=== PATIENT | female | born 1985 | race Caucasian/White ===

== ENCOUNTER 2017-02-19 21:45 | Inpatient (IN) | payer OTHER ==
[~2017-02-19 21:45] MED LIST: BUTORPHANOL TARTRATE 1 MG/ML VIAL IVPB ONE; PROMETHAZINE HCL 25 MG/1 ML VIAL IVPB ONE
[2017-02-19] MEDS ORDERED: AMPICILLIN - 100 ML IVPB ONE (23:30)
[2017-02-19 23:40] LABS: BASOPHIL 0.4 % (0-2.0); EOSINOPHIL 1.4 % (0-4.5); MCH 30.1 pg (25.7-33.7); MCHC 33.3 g/dl (32.0-36.0); MEAN CELL VOLUME 90.6 fl (80-96); MEAN PLT VOLUME 8.1 fl (7.5-11.1); NEUTROPHILS 68.2 % (42.8-82.8); PLATELET COUNT 264 K/MM3 (134-434); RDW 13.3 % (11.6-15.6); WHITE BLOOD COUNT 11.3 K/mm3 (4.0-10.0)
[2017-02-20 00:01] LABS: INR 0.95 (0.82-1.09); PROTHROMBIN TIME (PATIENT) 10.4 SEC (9.98-11.88)
[2017-02-20 00:03] LABS: ACTIVATED PTT 26.6 SECONDS (26.9-34.4)
[2017-02-20 00:07] LABS: ANION GAP 10 (8-16); CALCIUM 8.3 mg/dL (8.5-10.1); CO2 25 mmol/L (21-32); CREATININE 0.6 mg/dL (0.55-1.02); GLUCOSE,RANDOM 78 mg/dL (74-106)
[2017-02-20] MEDS ORDERED: TUBERCULIN PPD 5 TU/0.1ML SYRINGE (IN PATIENT USE ONLY) ID ONE (01:15)
[2017-02-20] MEDS ORDERED: DEXTROSE 5%-LACTATED RINGERS 1,000 ML IV SCH ×2 (01:15→09:30)
[2017-02-20] MEDS: AMPICILLIN - 100 ML IVPB SCH ×2 (04:15→07:30)
[2017-02-20] MEDS ORDERED: BUTORPHANOL TARTRATE 1 MG/ML VIAL IVPB ONE (05:15)
[2017-02-20] MEDS ORDERED: PROMETHAZINE HCL 25 MG/1 ML VIAL IVPB ONE (05:30)
--- NOTE | 2017-02-20 08:49 | HP ---
Past Medical History - Admission Chief Complaint: ROM/LOF History of Present Illness: 32 y/o [id number] female with SIUP at 37.1 weeks gestation here with complaints of leaking fluid since 7pm last night. Pt arrived to L&D overnight, had a closed cervix upon admission and was observed overnight. Pt with H/O delivery at 38 weeks due to pre Eclampsia per patient. Patient followed by MFM throughout , was taking baby ASA on and off. Pt desires TOLAC. Otherwise uncomplicated . 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 near syncopal episodes in early ) Pulmonary: No: COPD Gastrointestinal: No: GERD, Irritable Bowel Disease Renal/: No: BPH, UTI ...: 4 ...Para: 1 ...: 1 ...Induced : 2 ...EDC by Kami: 03/11/17 Infectious Disease: No: HIV, MRSA Psych: No: Bipolar, Panic Endocrine: No: Diabetes Mellitus, Hypothyroidism - Past Surgical History Past Surgical History: Yes: Hx Myomectomy: Yes Hx Transabdominal Cerclage: Yes - Smoking History Smoking history: Never smoked Aproximately how many cigarettes per day: 0 - Alcohol/Substance Use Hx Alcohol Use: No - Social History ADL: Independent History of Recent Travel: No Home Medications - Allergies Allergies/Adverse Reactions: Allergies Allergy/AdvReac Type Severity Reaction Status Date / Time No Known Drug Allergies Allergy Verified 10/19/15 09:22 seafood Allergy Severe Swelling Uncoded 12/10/16 18:36 - Home Medications Home Medications: Ambulatory Orders Vit/Iron Fumarate/FA [ Tablet] 1 tablet PO DAILY 11/12/16 Review of Systems - Review of Systems Constitutional: reports: No Symptoms Eyes: reports: No Symptoms HENT: reports: No Symptoms Neck: reports: No Symptoms Cardiovascular: reports: No Symptoms Respiratory: reports: No Symptoms Gastrointestinal: reports: No Symptoms Genitourinary: reports: No Symptoms Breasts: reports: No Symptoms Reported Musculoskeletal: reports: No Symptoms Integumentary: reports: No Symptoms Neurological: reports: No Symptoms Endocrine: reports: No Symptoms Hematology/Lymphatic: reports: No Symptoms Psychiatric: reports: No Symptoms Physical Exam - Maternity Vital Signs: Vital Signs Temperature 98.2 F 02/20/17 08:00 Pulse Rate 74 02/20/17 08:00 Respiratory Rate 20 02/20/17 08:00 Blood Pressure 115/63 02/20/17 08:00 O2 Sat by Pulse Oximetry (%) Constitutional: Yes: Well Nourished, No Distress, Calm Eyes: Yes: Conjunctiva Clear, EOM Intact HENT: Yes: Atraumatic, Normocephalic Neck: Yes: Supple, Trachea Midline Cardiovascular: Yes: Regular Rate and Rhythm Lungs: Clear to auscultation - Abdominal Exam/OB Fundal Height: 37 Number of Fetuses: Single Presentation: Vertex Contractions: Yes Regularity: Irregular Intensity: Mild Monitor Mode: External Heart Rate (range): 120 Category: I Accelerations: None Decelerations: None - Vaginal Exam/OB Vaginal Bleediing: No Dilatation (cm): 0 Effacement (%): 0 Amniotic Membrane Status: Ruptured Nitrazine Test: Positive Amniotic Fluid: Yes: Clear Presentation: Vertex/Position Station: -3 - Physical Exam Extremities: Yes: WNL Psychiatric: Yes: Alert, Oriented - Labs Lab Results: CBC, BMP 02/19/17 23:30 02/19/17 23:30 Hemorrhage Risk Assessment - Risk Factors Medium Risk Factors: Yes: Prior , uterine surgery,or multiple laparotomies High Risk Factors: Yes: None Risk Score: 1 Risk Level: Medium Risk Problem List - Problems (1) History of delivery Code(s): Z98.891 - HISTORY OF UTERINE SCAR FROM PREVIOUS SURGERY (2) Premature rupture of membranes Code(s): O42.90 - NOHELIA ROM, 7TH0 BETW RUPT & ONST LABR, UNSP WEEKS OF GEST Assessment/Plan 32 y/o with SIUP at 37.1 weeks, ROM, desires TOLAC - AFVSS - FHTS cat 1 - desires TOLAC, will observe for now and await spontaneous labor, cervix unripe discussed that induction agents are contraindicated. Discussed that we could augment her with pitocin if needed. Pt aware and understands. If no labor by the end of the day, pt desires delivery. - GBS negative no antibiotics needed
[2017-02-20] MEDS ORDERED: FENTANYL/BUPIVACAINE/NS/PF - PCEA - 50 ML DISP.SYRIN EP SCH (11:15)
[2017-02-20] MEDS: AMPICILLIN - 1 GM in SODIUM CHLORIDE 100 ML IVPB SCH (11:30)
--- NOTE | 2017-02-20 13:36 | PN ---
Ante-Partal Exam - Subjective Subjective: Patient comfortable with epidural. Vital Signs: Vital Signs Temperature 97.5 F L 02/20/17 12:00 Pulse Rate 77 02/20/17 10:00 Respiratory Rate 20 02/20/17 10:00 Blood Pressure 114/56 02/20/17 10:00 O2 Sat by Pulse Oximetry (%) 100 02/20/17 11:15 Bleeding: No Headache: No Visual changes: No Right upper quadrant pain: No Pain (scale 1-10): 0 - Contractions Contractions: Yes Regularity: Irregular Intensity: Mild/Mod Monitor Mode: External - Exam during Labor Heart Rate: 135 Category: I Monitor Accelerations: Present Monitor Decelerations: None Exam: Vaginal Dilatation (cm): 2.5 Effacement (%): 70 Amniotic Membrane Status: Ruptured Presentation: Vertex Station: -2 - Assessment/Plan Assessment/Plan: 32 y/o with SIUP at 37+ weeks, SROM, h/o c section desires TOLAC- now in labor - AFVSS - FHTS cat 1 - in labor, to augment with pitocin - GBS negative - continue active management
[2017-02-20] MEDS ORDERED: OXYTOCIN 15 UNITS/ LR 250 ML 250 ML IVPB SCH (13:45)
--- NOTE | 2017-02-20 16:30 | PN ---
Ante-Partal Exam - Subjective Subjective: Pt still comfortable with epidural. Pitocin at 3 Vital Signs: Vital Signs Temperature 98.7 F 02/20/17 14:00 Pulse Rate 57 L 02/20/17 15:00 Respiratory Rate 14 02/20/17 15:00 Blood Pressure 115/76 02/20/17 15:00 O2 Sat by Pulse Oximetry (%) 100 02/20/17 15:00 Bleeding: Yes Bleeding Description: Mild Headache: No Visual changes: No Right upper quadrant pain: No - Contractions Contractions: Yes Regularity: Regular Intensity: Unaware Monitor Mode: External - Exam during Labor Heart Rate: 130 Variability: Moderate Category: I Monitor Accelerations: Present Monitor Decelerations: None Exam: Vaginal Dilatation (cm): 2.5 Effacement (%): 70 Amniotic Membrane Status: Ruptured Nitrazine Test: Positive Amniotic Fluid: Clear Presentation: Vertex Station: -2 - Assessment/Plan Assessment/Plan: 32 y/o with SIUP at 37+ weeks, SROM, labor now augmented with pitocin, for TOLAC - AFVSS - FHTS cat 1 - labor/TOLAC, now augmented with pitocin. Continue active management , will re evaluate in 2 hours if no progress patient may desire repeat c section. - GBS negative
[2017-02-20] MEDS ORDERED: AMPICILLIN - 1 GM in SODIUM CHLORIDE 100 ML IVPB SCH (17:45)
--- NOTE | 2017-02-20 18:49 | PN ---
Ante-Partal Exam - Subjective Subjective: Patient comfortable s/p epidural top off. Vital Signs: Vital Signs Temperature 98.1 F 02/20/17 18:00 Pulse Rate 64 02/20/17 15:45 Respiratory Rate 15 02/20/17 15:45 Blood Pressure 102/67 02/20/17 15:45 O2 Sat by Pulse Oximetry (%) 100 02/20/17 15:45 Bleeding: Yes Bleeding Description: Mild Headache: No Visual changes: No Right upper quadrant pain: No - Contractions Contractions: Yes Regularity: Regular Intensity: Mild/Mod Monitor Mode: External - Exam during Labor Heart Rate: 140 Variability: Moderate Category: I Monitor Accelerations: Present Monitor Decelerations: None Exam: Vaginal Dilatation (cm): 2.5 Effacement (%): 70 Amniotic Membrane Status: Ruptured Presentation: Vertex Station: -2 - Intrapartum Hemorrhage Risk Medium Risk Factors: None High Risk Factors: None Risk Score: 0 Risk Level: Low Risk - Assessment/Plan Assessment/Plan: 32 y/o at 37+ weeks, SROM, labor augmented, TOLAC - AFVSS - FHTS cat 1 - no progress since this a.m. and patient ROM for 24 hours, on Pitocin since this a.m.. Discussed options with patient, pt elects to undergo repeat delivery - consents signed, nursery and anesthesia aware
[2017-02-20] MEDS ORDERED: METHYLERGONOVINE MALEATE 0.2 MG/1 ML AMP IM PRN (19:30)
[2017-02-20] MEDS ORDERED: IBUPROFEN 800 MG/8 ML IJ IVPB PRN (19:30)
--- NOTE | 2017-02-20 20:20 | PN ---
Progress Note (short form) - Note Progress Note: Attended C/S at the request of OB for failed Mom 32yrs old - CHARLENE 03/11 Presented to with leaking membranes at 7 PM om 02/19/17 Mat Labs nl. GBS- neg ROM ? 24hrs received 4 doses of amp Infant delivered by C/S clear fluid, cried soon after suctioned dried. CAN x 1, cord 3V, 9/9 PE: alert active, pink well perfused,no cleft lip/ palate S1-S2 nl no heart murmur, B/L good air entry No organomegaly, Nl male FROM, Nl hip exam, Good tone and activity 37.2 weeks Early Term Failed ROM 25hrs GBS- neg., Amp x 4 doses RNBC Watch for resp distress Encourage BF/ Bonding
--- NOTE | 2017-02-20 20:41 | OP ---
Operative Note - Note: Operative Date: 02/20/17 Pre-Operative Diagnosis: arrest of descent, attempted TOLAC Operation: repeat low transverse delivery Findings: normal b/l tubes and ovaries omental adhesions to the anterior uterus Surgeon: Lavonne Wharton Engravings Polisher: Ralf Hartmann Anesthesiologist/RACING MANAGER: Harris Stout Anesthesia: Spinal Specimens Removed: placenta Estimated Blood Loss (mls): 600 Operative Report Dictated: Yes
[2017-02-20] MEDS ORDERED: ONDANSETRON 4 MG/2 ML VIAL IVPUSH PRN (21:07)
[2017-02-20] MEDS: IBUPROFEN 800 MG/8 ML IJ IVPB PRN (21:30)
[2017-02-20] MEDS: OXYTOCIN 20 UNITS in 0.9% NS 1,000 ML IV SCH (21:32)
[2017-02-21] MEDS: CEFAZOLIN (PRE-DOCKED) 50 ML IVPB SCH ×3 (02:42→17:58)
[2017-02-21] MEDS: IBUPROFEN 800 MG/8 ML IJ IVPB PRN (04:08)
[2017-02-21] MEDS: AMPICILLIN - 1 GM in SODIUM CHLORIDE 100 ML IVPB SCH (07:30)
--- NOTE | 2017-02-21 08:09 | PN ---
Post Progress Note - Subjective Subjective: 32 yo status post repeat , seen and evaluated. Doing well Post Day: 1 Type of Delivery: Repeat C/S Vital Signs: Vital Signs Temperature 98.2 F 02/21/17 06:00 Pulse Rate 72 02/21/17 06:00 Respiratory Rate 18 02/21/17 06:00 Blood Pressure 107/66 02/21/17 06:00 O2 Sat by Pulse Oximetry (%) 100 02/20/17 21:45 Breast Exam: Yes: Soft Uterus: Yes: Fundus Firm Incision: Yes: Dressing dry and intact Abdomen/GI: Yes: Abdomen soft Lochia: Yes: Rubra Lochia, amount: Small Extremities: Yes: Calves non-tender Perineum: Yes: Intact Activity: Other (She's lying in bed) - Labs Labs: CBC WBC 11.3 K/mm3 (4.0-10.0) H 02/19/17 23:30 RBC 3.75 M/mm3 (3.60-5.2) 02/19/17 23:30 Hgb 11.3 GM/dL (10.7-15.3) D 02/19/17 23:30 Hct 33.9 % (32.4-45.2) D 02/19/17 23:30 MCV 90.6 fl (80-96) 02/19/17 23:30 MCHC 33.3 g/dl (32.0-36.0) 02/19/17 23:30 RDW 13.3 % (11.6-15.6) 02/19/17 23:30 Plt Count 264 K/MM3 (134-434) 02/19/17 23:30 MPV 8.1 fl (7.5-11.1) D 02/19/17 23:30 Neutrophils % 68.2 % (42.8-82.8) 02/19/17 23:30 Lymphocytes % 21.4 % (8-40) D 02/19/17 23:30 Monocytes % 8.6 % (3.8-10.2) 02/19/17 23:30 Eosinophils % 1.4 % (0-4.5) D 02/19/17 23:30 Basophils % 0.4 % (0-2.0) 02/19/17 23:30 Problem List - Problems (1) Status post repeat low transverse section Code(s): Z98.891 - HISTORY OF UTERINE SCAR FROM PREVIOUS SURGERY Assessment/Plan Status post repeat Stable Ambulation Analgesia as needed Continue post op care
[2017-02-21 08:35] LABS: BASOPHIL 0.2 % (0-2.0); EOSINOPHIL 0.9 % (0-4.5); MCH 30.4 pg (25.7-33.7); MCHC 33.3 g/dl (32.0-36.0); MEAN CELL VOLUME 91.2 fl (80-96); MEAN PLT VOLUME 8.3 fl (7.5-11.1); NEUTROPHILS 73.1 % (42.8-82.8); PLATELET COUNT 166 K/MM3 (134-434); RDW 13.3 % (11.6-15.6); WHITE BLOOD COUNT 11.8 K/mm3 (4.0-10.0)
[2017-02-21] MEDS: ACETAMINOPHEN 325 MG TABLET (FP) PO PRN ×2 (09:20→15:41)
[2017-02-21] MEDS: OXYTOCIN 20 UNITS in 0.9% NS 1,000 ML IV SCH (09:21)
[2017-02-21] MEDS: PRENATAL VITAMINS W/ FOLIC ACID TABLET (FP) PO SCH (09:31)
[2017-02-21] MEDS: oxyCODONE HCL 5 MG TABLET PO PRN ×3 (11:06→22:54)
[2017-02-21] MEDS: SIMETHICONE 80 MG TAB.CHEW (FP) PO PRN ×3 (11:07→22:55)
--- NOTE | 2017-02-21 17:06 | OP ---
DATE OF OPERATION: DATE OF DICTATION: 02/21/2017 PREOPERATIVE DIAGNOSES: Single intrauterine at 37+ weeks gestation, spontaneous rupture of membranes, labor augmented with Pitocin, failed trial of labor after . POSTOPERATIVE DIAGNOSES: Single intrauterine at 37+ weeks gestation, spontaneous rupture of membranes, labor augmented with Pitocin, failed trial of labor after . PROCEDURE: Repeat low-transverse section. SURGEON: Lavonne Wharton DO LYE TREATER: KIMBER Llanos ESTIMATED BLOOD LOSS: 600 mL. ANESTHESIA: Epidural maintained by Harris Stout MD throughout the operation. SPECIMENS REMOVED: Included placenta. COMPLICATIONS: None. COUNTS: Sponge, needle, and instrument counts were reported to be correct. BRIEF HISTORY AND PROCEDURE: Patient is a 32-year-old female who had been admitted to labor and delivery with complaints of spontaneous rupture of membranes on the evening of February 19, 2017. Patient was admitted overnight. The patient did have a prior section and desired a trial of labor after . She was monitored throughout the night and on the morning of February 20, 2017, was uncomfortable. Received an epidural for pain control. Was found to be 2 cm dilated. Patient was joshua but infrequently and Pitocin was started for augmentation of labor. Patient was monitored throughout the day and on the evening of February 20, 2017, the patient had made no cervical progress despite being on Pitocin. At this point, the options were discussed with the patient and she elected to undergo a repeat low-transverse section. The patient signed consent. She was then taken back to the operating room. She was placed in the dorsal supine position on the operating room table. Her epidural was bolused. A Park catheter had been placed earlier under sterile conditions and she was prepped and draped in the usual sterile fashion and a hard timeout was performed. A Pfannenstiel skin incision was created in the skin with a scalpel and carried through the underlying layer of rectus fascia with the Bovie. The fascia was incised on either side of the midline with the Bovie and carried in a superolateral direction. The fascia was tented upward and dissected off the underlying layer of rectus fascia. The rectus muscle was retracted laterally and the peritoneum was entered sharply. Adhesions from the omentum to the anterior uterus were appreciated which were clamped, cut, and ligated with free ties. Next, the transverse incision in the lower uterine segment was completed and carried in a superolateral direction bluntly. The was then delivered from the CATHY position. The anterior and posterior shoulder delivered along with the remainder of the . The cord was clamped twice and cut in between. After delayed cord clamping was completed and the scores after being assessed by Neonatology were 8 and 9, placenta was then delivered intact and manually extracted. The uterus was exteriorized from the abdomen, inspected, and cleared of all amniotic membrane and debris with a dry lap sponge. The hysterotomy was approximated in a double-layer closure using Vicryl and Biosyn suture in a running locked fashion. In any areas of bleeding figure-of-8 sutures were placed to achieve hemostasis. The posterior cul-de-sac was suctioned. The uterus was placed back into the abdomen. Bilateral gutters were inspected and cleared of all debris. The hysterotomy was then again reinspected and noted to be hemostatic. The peritoneum was reapproximated in a running fashion using chromic suture. The musculature was reapproximated with 2 interrupted sutures using chromic suture. The fascia was reapproximated using Vicryl suture in a running fashion. The subcutaneous tissue was irrigated and reapproximated in a running fashion using Vicryl. The skin was reapproximated in subcuticular fashion using Vicryl suture. All sponge, needle, and instrument counts were reported to be correct. The patient tolerated the procedure well and recovered in stable condition in the recovery room after the procedure. LAVONNE WHARTON DO /[id number]
[2017-02-21] MEDS: BISACODYL 10 MG SUPP.RECT RC PRN (19:19)
[2017-02-21] MEDS: IBUPROFEN 600 MG TABLET (FP) PO PRN (22:53)
[2017-02-21] MEDS ORDERED: SODIUM CHLORIDE 500 ML IV ONE (23:00)
[2017-02-21 23:05] LABS: MCH 29.9 pg (25.7-33.7); MCHC 32.9 g/dl (32.0-36.0); MEAN CELL VOLUME 90.9 fl (80-96); MEAN PLT VOLUME 8.1 fl (7.5-11.1); PLATELET COUNT 195 K/MM3 (134-434); RDW 13.2 % (11.6-15.6); WHITE BLOOD COUNT 11.9 K/mm3 (4.0-10.0)
[2017-02-21] MEDS: SODIUM CHLORIDE 1,000 ML IV SCH (23:30)
--- NOTE | 2017-02-22 00:13 | PN ---
Progress Note, Physician Chief Complaint: Pt. ambulating and voiding, no BYERS. Having pain that she says is not controlled. - Current Medication List Current Medications: Active Medications Acetaminophen (Tylenol -) 650 mg PO Q4H PRN PRN Reason: FEVER OR PAIN Last Admin: 02/21/17 15:41 Dose: 650 mg Bisacodyl (Dulcolax Suppository -) 10 mg RC PRN PRN PRN Reason: CONSTIPATION Last Admin: 02/21/17 19:19 Dose: 10 mg Diphenhydramine HCl (Benadryl Injection -) 25 mg IVPUSH Q4H PRN PRN Reason: itching Diphtheria/Tetanus/Acell Pertussis (Boostrix -) 0.5 ml IM .ONCE ONE Stop: 02/22/17 10:01 Sodium Chloride (Normal Saline -) 1,000 mls @ 125 mls/hr IV ASDIR STEPHANIE Cefazolin Sodium/Dextrose (Ancef 2 Gm Premixed Ivpb -) 50 mls @ 100 mls/hr IVPB Q8H-IV STEPHANIE Ibuprofen (Motrin -) 600 mg PO Q4H PRN PRN Reason: PAIN Last Admin: 02/21/17 22:53 Dose: 600 mg Methylergonovine Maleate (Methergine Injection -) 0.2 mg IM Q4H PRN PRN Reason: Excessive Bleeding (L&D) Oxycodone HCl (Roxicodone -) 5 mg PO Q4H PRN PRN Reason: PAIN LEVEL 1-5 Last Admin: 02/21/17 11:06 Dose: 5 mg Oxycodone HCl (Roxicodone -) 10 mg PO Q4H PRN PRN Reason: PAIN LEVEL 6-10 Last Admin: 02/21/17 22:54 Dose: 10 mg Multivit/Folic Acid/Iron ( Vitamins (Sjr) -) 1 tab PO DAILY STEPHANIE Last Admin: 02/21/17 09:31 Dose: Not Given Senna/Docusate Sodium (Pericolace -) 2 tablet PO HS PRN PRN Reason: CONSTIPATION Simethicone (Mylicon -) 80 mg PO Q4H PRN PRN Reason: GAS Last Admin: 02/21/17 22:55 Dose: 80 mg - Objective Vital Signs: Vital Signs Temperature 97.9 F 02/21/17 17:32 Pulse Rate 69 07/08/17 17:32 Respiratory Rate 20 02/21/17 19:00 Blood Pressure 107/65 02/21/17 17:32 O2 Sat by Pulse Oximetry (%) 100 02/20/17 21:45 Constitutional: Yes: Well Nourished, No Distress, Calm Musculoskeletal: Yes: WNL Neurological: Yes: WNL, Alert, Oriented ...Motor Strength: WNL Labs: CBC, BMP 02/21/17 22:45 02/19/17 23:30 INR, PTT INR 0.95 (0.82-1.09) 02/19/17 23:30 Assessment/Plan POD#1 s/p repeat under epidural with duramorph. Doing well. D/C from anesthesia care.
[2017-02-22] MEDS: CEFAZOLIN 2 GM/D5W 50 ML IVPB SCH ×3 (01:56→19:02)
[2017-02-22] MEDS: SIMETHICONE 80 MG TAB.CHEW (FP) PO PRN ×3 (03:08→22:26)
[2017-02-22] MEDS: oxyCODONE HCL 5 MG TABLET PO PRN ×3 (03:09→22:27)
[2017-02-22] MEDS: IBUPROFEN 600 MG TABLET (FP) PO PRN ×3 (03:09→22:29)
[2017-02-22] MEDS: PRENATAL VITAMINS W/ FOLIC ACID TABLET (FP) PO SCH (09:47)
[2017-02-22] MEDS ORDERED: DIPHTH,PERTUSS(ACELL),TET 0.5 ML DISP.SYRIN IM ONE (10:00)
[2017-02-22] MEDS ORDERED: IBUPROFEN 800 MG/8 ML IJ IVPB PRN (17:20)
[2017-02-22] MEDS: SENNOSIDES/DOCUSATE COMBO (SENNA PLUS) TABLET (UD) PO PRN (22:26)
--- NOTE | 2017-02-22 22:46 | PN ---
Progress Note, Physician Chief Complaint: s/p c/section c/o incisional grace she was fabrile yesterday her antibiotic was continued for another 23 hours. cueerently she is afebrile hemoglobin hematocrit are stable wbc is stable . blood culture taken at midnight resultts are stil pending History of Present Illness: condition is stable on post op day 2 - Current Medication List Current Medications: Active Medications Acetaminophen (Tylenol -) 650 mg PO Q4H PRN PRN Reason: FEVER OR PAIN Last Admin: 02/21/17 15:41 Dose: 650 mg Bisacodyl (Dulcolax Suppository -) 10 mg RC PRN PRN PRN Reason: CONSTIPATION Last Admin: 02/21/17 19:19 Dose: 10 mg Diphenhydramine HCl (Benadryl Injection -) 25 mg IVPUSH Q4H PRN PRN Reason: itching Sodium Chloride (Normal Saline -) 1,000 mls @ 125 mls/hr IV ASDIR STEPHANIE Last Admin: 02/21/17 23:30 Dose: 125 mls/hr Cefazolin Sodium/Dextrose (Ancef 2 Gm Premixed Ivpb -) 50 mls @ 100 mls/hr IVPB Q8H-IV STEPHANIE Last Admin: 02/22/17 19:02 Dose: 100 mls/hr Ibuprofen (Motrin -) 600 mg PO Q4H PRN PRN Reason: PAIN Last Admin: 02/22/17 22:29 Dose: 600 mg Ibuprofen (Caldolor Injection -) 800 mg IVPB Q6H PRN PRN Reason: FEVER Last Admin: 02/22/17 17:34 Dose: 800 mg Methylergonovine Maleate (Methergine Injection -) 0.2 mg IM Q4H PRN PRN Reason: Excessive Bleeding (L&D) Oxycodone HCl (Roxicodone -) 5 mg PO Q4H PRN PRN Reason: PAIN LEVEL 1-5 Last Admin: 02/22/17 22:27 Dose: 5 mg Oxycodone HCl (Roxicodone -) 10 mg PO Q4H PRN PRN Reason: PAIN LEVEL 6-10 Last Admin: 02/22/17 11:47 Dose: 10 mg Multivit/Folic Acid/Iron ( Vitamins (Sjr) -) 1 tab PO DAILY STEPHANIE Last Admin: 02/22/17 09:47 Dose: 1 tab Senna/Docusate Sodium (Pericolace -) 2 tablet PO HS PRN PRN Reason: CONSTIPATION Last Admin: 02/22/17 22:26 Dose: 2 tablet Simethicone (Mylicon -) 80 mg PO Q4H PRN PRN Reason: GAS Last Admin: 02/22/17 22:26 Dose: 80 mg - Objective Vital Signs: Vital Signs Temperature 97.7 F 02/22/17 18:00 Pulse Rate 68 02/22/17 18:00 Respiratory Rate 18 02/22/17 18:00 Blood Pressure 119/68 02/22/17 18:00 O2 Sat by Pulse Oximetry (%) 100 02/20/17 21:45 Constitutional: Yes: Well Nourished Eyes: Yes: WNL, Conjunctiva Clear HENT: Yes: WNL, Atraumatic Neck: Yes: WNL, Supple Cardiovascular: Yes: WNL Respiratory: Yes: WNL Gastrointestinal: Yes: WNL ...Rectal Exam: Yes: WNL Genitourinary: Yes: WNL Breast(s): Yes: WNL Extremities: Yes: WNL Edema: LUE: Trace, RUE: Trace, LLE: Trace, RLE: Trace Peripheral Pulses WNL: Yes Integumentary: Yes: WNL Wound/Incision: Yes: Clean/Dry, Excoriated Neurological: Yes: WNL, Alert, Oriented ...Motor Strength: WNL Psychiatric: Yes: WNL Labs: CBC, BMP 02/21/17 22:45 02/19/17 23:30 INR, PTT INR 0.95 (0.82-1.09) 02/19/17 23:30 Assessment/Plan condition is stable on post op day 2 patient is afebrile is on a regular diet which she tolorates well.her is releived with motrin and percocet. planto continue current care.
[2017-02-22] MEDS: SODIUM CHLORIDE 1,000 ML IV SCH (23:00)
[2017-02-23] MEDS: CEFAZOLIN 2 GM/D5W 50 ML IVPB SCH (01:36)
[2017-02-23 07:22] LABS: BASOPHIL 0.3 % (0-2.0); EOSINOPHIL 3.5 % (0-4.5); MCH 30.9 pg (25.7-33.7); MCHC 33.9 g/dl (32.0-36.0); MEAN CELL VOLUME 91.2 fl (80-96); MEAN PLT VOLUME 7.8 fl (7.5-11.1); NEUTROPHILS 66.9 % (42.8-82.8); PLATELET COUNT 176 K/MM3 (134-434); RDW 13.4 % (11.6-15.6); WHITE BLOOD COUNT 8.5 K/mm3 (4.0-10.0)
[2017-02-23] MEDS: oxyCODONE HCL 5 MG TABLET PO PRN (08:15)
[2017-02-23] MEDS: IBUPROFEN 600 MG TABLET (FP) PO PRN (09:45)
[2017-02-23] MEDS: PRENATAL VITAMINS W/ FOLIC ACID TABLET (FP) PO SCH (09:47)
[2017-02-23] MEDS ORDERED: HYDROmorphone HCL CARPU-JECT 1 MG/1 ML DISP.SYRIN IVPB ONE (10:30)
[2017-02-23] MEDS ORDERED: HYDROmorphone HCL 2 MG TABLET PO PRN (12:00)
[2017-02-23] MEDS ORDERED: DIPHTH,PERTUSS(ACELL),TET 0.5 ML DISP.SYRIN IM ONE (13:45)
[2017-02-23] MEDS: HYDROmorphone HCL 2 MG TABLET PO PRN (16:10)
[2017-02-23] MEDS: SIMETHICONE 80 MG TAB.CHEW (FP) PO PRN ×2 (16:11→21:28)
--- NOTE | 2017-02-23 20:08 | PN ---
Post Progress Note - Subjective Subjective: Pt seen and evaluated today. Overall doing well. Still c/o incisional pain. States Oxycodone not helping. OOB, ambulating and voiding. Passing flatus. VB minimal. Type of Delivery: Repeat C/S Vital Signs: Vital Signs Temperature 97.7 F 02/23/17 14:00 Pulse Rate 60 02/23/17 14:00 Respiratory Rate 20 02/23/17 14:00 Blood Pressure 126/69 02/23/17 14:00 O2 Sat by Pulse Oximetry (%) 100 02/20/17 21:45 Uterus: Yes: Fundus Firm, Fundus below umbilicus Incision: Yes: Swapnil intact Abdomen/GI: Yes: Abdomen soft, Passing flatus, Tolerating PO Lochia: Yes: Rubra Lochia, amount: Small Extremities: Yes: Edema (+1 LE edema b/l, nonpitting) Activity: Ambulating - Labs Labs: CBC WBC 8.5 K/mm3 (4.0-10.0) 02/23/17 06:40 RBC 2.82 M/mm3 (3.60-5.2) L 02/23/17 06:40 Hgb 8.7 GM/dL (10.7-15.3) L 02/23/17 06:40 Hct 25.7 % (32.4-45.2) L 02/23/17 06:40 MCV 91.2 fl (80-96) 02/23/17 06:40 MCH 30.9 pg (25.7-33.7) 02/23/17 06:40 MCHC 33.9 g/dl (32.0-36.0) 02/23/17 06:40 RDW 13.4 % (11.6-15.6) 02/23/17 06:40 Plt Count 176 K/MM3 (134-434) 02/23/17 06:40 MPV 7.8 fl (7.5-11.1) 02/23/17 06:40 Neutrophils % 66.9 % (42.8-82.8) 02/23/17 06:40 Lymphocytes % 20.1 % (8-40) D 02/23/17 06:40 Monocytes % 9.2 % (3.8-10.2) 02/23/17 06:40 Eosinophils % 3.5 % (0-4.5) D 02/23/17 06:40 Basophils % 0.3 % (0-2.0) 02/23/17 06:40 Problem List - Problems (1) History of delivery Code(s): Z98.891 - HISTORY OF UTERINE SCAR FROM PREVIOUS SURGERY (2) delivery delivered Code(s): O82 - ENCOUNTER FOR DELIVERY WITHOUT INDICATION Assessment/Plan POD3 switch meds to Dilaudid to see if that helps with pain control, give motrin and tylenol around the clock Pt with c/o some pain with urination, febrile yesterday, will send urine culture regular diet encourage ambulation plan for discharge home in a.m.
[2017-02-23] MEDS: SENNOSIDES/DOCUSATE COMBO (SENNA PLUS) TABLET (UD) PO PRN (21:28)
[2017-02-23] MEDS: BISACODYL 10 MG SUPP.RECT RC PRN (22:09)
[2017-02-24] MEDS: SIMETHICONE 80 MG TAB.CHEW (FP) PO PRN (06:03)
[2017-02-24] MEDS: IBUPROFEN 600 MG TABLET (FP) PO PRN (06:04)
[2017-02-24] MEDS: ACETAMINOPHEN 325 MG TABLET (FP) PO PRN (06:04)
--- NOTE | 2017-02-24 08:17 | DS ---
Physical Exam-DATA ENTRY SUPERVISOR Vital Signs: Vital Signs Temperature 100 F H 02/24/17 05:54 Pulse Rate 76 02/24/17 05:54 Respiratory Rate 20 02/24/17 05:54 Blood Pressure 134/76 02/24/17 05:54 O2 Sat by Pulse Oximetry (%) 100 02/20/17 21:45 Labs: CBC, BMP 02/23/17 06:40 02/19/17 23:30 Delivery - Delivery Type of Anesthesia: Epidural Episiotomy/Laceration: None EBL (cc): 600 Delivery, Single - Stages of Labor Date 1st Stage Initiatied: 02/19/17 Time 1st Stage Initiated: 19:10 Date of Delivery: 02/20/17 Time of Delivery: 20:02 Time Placenta Delivered: 20:03 - Condition of Infant Licensed Psychologist Director/Cooler Service Supervisor Present: Yes Name: Triston Mendes Gender: Male Weight: 6 lb 15 oz Position: Left, OT Total Hours ROM (Hrs/Mins): 24h53m - 1 Minute Total Score: 8 5 Minutes Total Score: 9 - Feeding Plan Initial Plan: Elected not to breastfeed exclusively throughout hospitalization Discharge Summary Reason For Visit: LABOR ADMIT Current Active Problems delivery delivered (Acute) History of delivery (Acute) Premature rupture of membranes (Acute) Status post repeat low transverse section (Acute) Condition: Stable - Instructions Diet, Activity, Other Instructions: Physical activity Resume your normal everyday activity as tolerated but no heavy lifting or strenuous exercise until seen by your surgeon. You may walk unlimited amounts and climb stairs. You may resume driving the car when you feel safe and comfortable behind the wheel- usually 2 weeks. No sexual activity as instructed for 6 weels. Wound care If there are tiarra on the skin e leave them in place. You will have them removed in the office in the next 7 to 10 days. Do Not try to remove them . You may shower the day after surgery. If there are tiarra on the skin, you may shower over them. Diet There are no dietary restrictions. Eat healthy, high-fiber foods. Drink 6 to 8 glasses of liquid each day. This will assist in keeping your bowels regular. Pain management You may take Tylenol or Ibuprofen (for example, Motrin, Advil etc.) for mild pain. You may take any prescription medication as directed for severe pain. Call MD for any of the following: Severe pain not relieved by medication Fever of 101 or higher Excessive bleeding or drainage on dressing Inability to urinate Referrals: Lavonne Wharton DO [Staff Physician] - 1 Week Disposition: HOME - Home Medications Comprehensive Discharge Medication List: Ambulatory Orders Vit/Iron Fumarate/FA [ Tablet] 1 tablet PO DAILY 11/12/16 Hydromorphone HCl [Dilaudid] 2 - 4 mg PO Q6H PRN #30 tablet MDD 8 02/24/17 Ibuprofen [Motrin -] 600 mg PO QID PRN #28 tablet 02/24/17
[2017-02-24] MEDS: HYDROmorphone HCL 2 MG TABLET PO PRN (09:32)
[2017-02-24] MEDS: PRENATAL VITAMINS W/ FOLIC ACID TABLET (FP) PO SCH (09:32)
[2017-02-24 12:08] VITALS: BP 128/76; PULSE 58; TEMP 97.7
--- NOTE | 2017-02-26 14:23 | PATH ---
Surgical Pathology Report Patient Name: SHRUTHI BRADFORD Med. Rec. 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 Electronically Signed Elmer Foote M.D. Gross Description The specimen is received fresh labeled placenta and is a 416 gram, 17.5 x 16.0 x 2.5 cm. placenta with attached membranes and umbilical cord. The attached membranes are morales, translucent with focal opacities and insert marginally. The umbilical cord measures 30 cm. in length and averages 1.2 cm. in diameter. The cord inserts eccentrically, 3 cm. to the nearest margin. No true knots or strictures are identified. Cut surface of the umbilical cord reveals 3 vessels. The surface is collado-blue with minimal fibrin deposition and appropriate caliber vessels. The maternal surface is red-brown with focal defects. Sectioning reveals red-brown, spongy parenchyma. No lesions are identified. Hydraulic Bull Riveter Operator sections are submitted in three cassettes as follows: 1- membrane rolls and umbilical cord; 2-3- full thickness sections of placenta. 02/25/201702/25/2017
== END 2017-02-24 19:01 | disposition home or self-care (01) | DRG 766 ==
LOC: JDEL 21:45 → JLDR 21:50 → J3N 02-20 23:15 → J3W 02-22 13:13
PROVIDERS: ADMIT Obstetrics & Gynecology; ATTEND Obstetrics & Gynecology
PROC: 10D00Z1 Extraction of Products of Conception, Low, Open Approach (ICD-10-PCS; principal; 2017-02-21)
DX: O62.1 Secondary uterine inertia (principal); O34.211 Maternal care for low transverse scar from previous cesarean delivery; N85.8 Other specified noninflammatory disorders of uterus; Z3A.37 37 weeks gestation of pregnancy; Z37.0 Single live birth
CPT/HCPCS: 36415; 80048; 85025; 85027; 85610; 85730; 86593; 86850; 86900; 86901; 87040; 87086; 88307-TC; 90715

== ENCOUNTER 2017-05-12 15:37 | Emergency (ER) | payer OTHER ==
[2017-05-12 16:02] VITALS: BP 112/72; PULSE 82; TEMP 98.4; BMI 29.2
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
[2017-05-12] MEDS ORDERED: KETOROLAC TROMETHAMINE 60 MG/2 ML VIAL IM ONE (16:52)
[2017-05-12] MEDS ORDERED: KETOROLAC TROMETHAMINE 60 MG/2 ML VIAL ONE (16:58)
== END 2017-05-12 17:17 | disposition home or self-care (01) ==
LOC: JERFT 15:37
PROC: 3E0233Z Introduction of Anti-inflammatory into Muscle, Percutaneous Approach (ICD-10-PCS; principal; 2017-05-12)
DX: S13.4XXA Sprain of ligaments of cervical spine, initial encounter (principal); S33.5XXA Sprain of ligaments of lumbar spine, initial encounter; V43.52XA Car driver injured in collision with other type car in traffic accident, initial encounter; Y92.488 Other paved roadways as the place of occurrence of the external cause; Y93.89 Activity, other specified; Y99.9 Unspecified external cause status
CPT/HCPCS: 99281-25

== ENCOUNTER 2024-01-09 02:46 | Emergency (ER) | payer BC, OTHER ==
[2024-01-09 03:10] VITALS: BMI 33.8
[2024-01-09] MEDS: DEXAMETHASONE 4 MG TABLET (FP) PO ONE (03:11)
[2024-01-09] MEDS: diphenhydrAMINE HCL 25 MG CAPSULE (FP) PO ONE (03:11)
[2024-01-09 04:03] VITALS: BP 142/98; PULSE 65; RESP 20
== END 2024-01-09 05:47 | disposition home or self-care (01) ==
LOC: JER 02:46
DX: T78.1XXA Other adverse food reactions, not elsewhere classified, initial encounter (principal); R22.0 Localized swelling, mass and lump, head; R06.02 Shortness of breath
CPT/HCPCS: 99283-25

== ENCOUNTER 2024-10-02 06:02 | Emergency (ER) | payer BC ==
[2024-10-02 06:13] VITALS: BMI 32.0
[2024-10-02 07:04] LABS: BASO % 0.5 % (0-2.0); EOS % 0.2 % (0-4.5); HEMATOCRIT 42.1 % (32.4-45.2); HEMOGLOBIN 13.8 GM/dL (10.7-15.3); LYMPH % 16.4 % (8-40); MCH 29.3 pg (25.7-33.7); MCHC 32.8 g/dl (32.0-36.0); MEAN CELL VOLUME 89.4 fl (80-96); MEAN PLT VOLUME 7.3 fl (7.5-11.1); MONO % 4.2 % (3.8-10.2); NEUT % 78.7 % (42.8-82.8); PLATELET COUNT 398 10^3/uL (134-434); RBC 4.71 M/mm3 (3.60-5.2); RDW 13.5 % (11.6-15.6)
[2024-10-02 07:07] LABS: INR 0.93 (0.83-1.09); PROTHROMBIN TIME (PATIENT) 10.2 SEC (9.7-13.0)
[2024-10-02 07:13] LABS: CHLORIDE 107 mmol/L (98-107); POTASSIUM 4.7 mmol/L (3.5-5.1); SODIUM 138 mmol/L (136-145)
[2024-10-02 07:16] LABS: CALCIUM 9.4 mg/dL (8.5-10.1)
[2024-10-02 07:17] LABS: ALBUMIN 3.9 g/dl (3.4-5.0); ANION GAP 9 mmol/L (4-13); BLOOD UREA NITROGEN 11.3 mg/dL (7-18); CO2 22 mmol/L (21-32); GLUCOSE,RANDOM 120 mg/dL (74-106)
[2024-10-02 07:20] LABS: CREATININE 0.7 mg/dL (0.55-1.3); SGOT/AST 22 U/L (15-37); SGPT/ALT 27 U/L (13-61)
[2024-10-02 07:22] LABS: BILIRUBIN,TOTAL 0.3 mg/dL (0.2-1); TOT PROT 7.5 g/dl (6.4-8.2)
[2024-10-02 07:23] LABS: ALK PHOS 79 U/L (45-117)
[2024-10-02] MEDS: SODIUM CHLORIDE 0.9% 500 ML INFUS.BAG IV ONE (08:34)
[2024-10-02] MEDS ORDERED: ACETAMINOPHEN INJECTION 100 ML ONE (08:35)
[2024-10-02] MEDS ORDERED: METOCLOPRAMIDE HCL INJECTION 10 MG/2 ML VIAL ONE (08:35)
[2024-10-02] MEDS: METOCLOPRAMIDE HCL INJECTION 10 MG/2 ML VIAL IVPB ONE (08:57)
[2024-10-02] MEDS: ACETAMINOPHEN 1000 MG/100 ML BAG IVPB ONE (08:57)
[2024-10-02 09:29] LABS: EPI CELLS 13 /uL (0-25.1); HYALINE CASTS 3 /uL (0-3.1); URINE APPEARANCE TURBID; URINE BACTERIA 686 /uL (0-1359); URINE BILIRUBIN NEGATIVE (NEGATIVE); URINE COLOR RED; URINE GLUCOSE (UA) NEGATIVE (NEGATIVE); URINE KETONE NEGATIVE (NEGATIVE); URINE LEUK ESTERASE 1+ (NEGATIVE); URINE NITRITE NEGATIVE (NEGATIVE); URINE PROTEIN 2+ (NEGATIVE); URINE RBC 17612 /uL (0-23.9); URINE UROBILINOGEN 0.2 mg/dL (0.2-1.0); URINE WBC 296 /uL (0-25.8)
[2024-10-02 10:10] VITALS: BP 129/88; PULSE 79; RESP 20; TEMP 98
== END 2024-10-02 10:22 | disposition home or self-care (01) ==
LOC: JER 06:02
PROC: 3E033NZ Introduction of Analgesics, Hypnotics, Sedatives into Peripheral Vein, Percutaneous Approach (ICD-10-PCS; principal; 2024-10-02)
PROC: 3E033GC Introduction of Other Therapeutic Substance into Peripheral Vein, Percutaneous Approach (ICD-10-PCS; 2024-10-02)
DX: N93.9 Abnormal uterine and vaginal bleeding, unspecified (principal); G43.909 Migraine, unspecified, not intractable, without status migrainosus; R10.30 Lower abdominal pain, unspecified; R55 Syncope and collapse; R42 Dizziness and giddiness; R11.2 Nausea with vomiting, unspecified; L56.8 Other specified acute skin changes due to ultraviolet radiation
CPT/HCPCS: 36415; 80053; 81003; 84702; 85025; 85610; 87086; 99284-25; J0131